=== PATIENT | male | born 1970 | race African-American/Black ===

== ENCOUNTER 2017-05-24 20:51 | Emergency (ER) | payer SELFPAY ==
[2017-05-24 20:53] VITALS: BP 158/81; PULSE 72; RESP 16; TEMP 98.2; O2SAT 100
--- NOTE | 2017-05-24 21:09 | PD ---
HPI Chief Complaint: Bite or Sting Time Seen by Provider: 21:09 Travel History International Travel<30 days: No Contact w/Intl Traveler<30days: No Traveled to known affect area: No History of Present Illness HPI 46-year-old male who is right handed, with history of diabetes, presents to emergency department for evaluation of a stingray sting to his right hand. Patient states that he was fishing when he caught the stingray. He rates trying to remove it from the hook when it struck his hand, piercing it. Patient reports significant pain where he was stung. He reports no limitations range of motion or alterations in sensation however he does report significant pain with movement of his fingers. Patient is uncertain of his tetanus status. He has no other symptoms to report. FORMERLY [facility] Past Medical History Diabetes: Yes Social History Alcohol Use: No Tobacco Use: No Substance Use: No Allergies-Medications (Allergen,Severity, Reaction): Coded Allergies: No Known Allergies (Unverified , 05/24/17) Reported Meds & Prescriptions Reported Meds & Active Scripts Active Reported Lisinopril 10 Mg Tab 10 Mg PO DAILY Metformin (Metformin HCl) 500 Mg Tab 500 Mg PO BIDPC With meals Review of Systems Except as stated in HPI: all other systems reviewed are Neg Physical Exam Narrative GENERAL: Well-nourished male patient, in no acute distress. SKIN: Focused skin assessment warm/dry. There is a 1 m puncture wound, well approximated on the dorsal aspect of the right hand between the first and second digit. Moderate edema surrounding this. HEAD: Atraumatic. Normocephalic. EYES: Pupils equal and round. No scleral icterus. No injection or drainage. ENT: No nasal bleeding or discharge. Mucous membranes pink and moist. NECK: Trachea midline. No JVD. CARDIOVASCULAR: Regular rate and rhythm. No murmur appreciated. RESPIRATORY: No accessory muscle use. Clear to auscultation. Breath sounds equal bilaterally. MUSCULOSKELETAL: No obvious deformities. No clubbing. No cyanosis. Patient has full flexion and extension of all digits and wrist to the affected extremity. NEUROLOGICAL: Awake and alert. No obvious cranial nerve deficits. Motor grossly within normal limits. Normal speech. PSYCHIATRIC: Appropriate mood and affect; insight and judgment normal. Data Data Last Documented VS Vital Signs Date Time Temp Pulse Resp B/P Pulse Ox O2 Delivery O2 Flow Rate FiO2 05/24/17 20:53 98.2 72 16 158/81 100 Orders Hand, Limited (2vws) (05/24/17 ) Tetanus/Diphtheria Tox Adult (Tetanus/Di (05/24/17 21:15) Doxycycline (Vibramycin) (05/24/17 21:15) MDM Medical Decision Making Medical Screen Exam Complete: Yes Emergency Medical Condition: Yes Medical Record Reviewed: Yes Differential Diagnosis Puncture wound versus local reaction versus foreign body versus tendon injury Narrative Course 46-year-old male presents to the emergency department following a stingray sting to his right hand. Patient has a puncture wound and localized swelling. Exam is otherwise negative. Patient's hand is immediately immersed in hot water. This alleviates his pain. Wound is irrigated. X-ray of the right hand is without any radiopaque foreign body identified. The osseous structures are intact. With concern of infection and higher risk due to the patient being diabetic, Patient will be tried on doxycycline empirically. He is encouraged to follow-up with a primary care provider. He agrees to return immediately with any acute worsening of symptoms. Diagnosis Primary Impression: Marine animal sting Qualified Code: T63.691A - Marine animal sting, accidental or unintentional, initial encounter Additional Impression: Puncture wound Referrals: Primary Care Physician Patient Instructions: General Instructions, Marine Animal Bite or Sting (ED) Additional Instructions: Elevate to reduce pain and swelling Continue soaking in warm to hot water to alleviate pain Follow-up with a primary care provider Start antibiotic tomorrow morning. Take it until it is all gone Ibuprofen as directed on the package as needed for pain Return immediately with any acute worsening of symptoms Med/Other Pt SpecificInfo: Prescription(s) given Scripts Hydrocodone-Acetaminophen (Lortab)5-325 Mg Tab1 Tab PO Q6H PRN (PAIN GREATER THAN 5) #6 TAB Ref 0 Prov:Paulina Peña 05/24/17 Doxycycline Hyclate 100 Mg Cpc038 Mg PO BID #20 CAP Ref 0 Prov:Paulina Peña 05/24/17 Disposition: 01 DISCHARGE HOME Condition: Stable Paulina Peña May 24, 2017 21:09
[2017-05-24] MEDS ORDERED: LISI10TA3 PO (21:12)
[2017-05-24] MEDS ORDERED: METF500T PO (21:12)
[2017-05-24] MEDS ORDERED: DOXYCYCLINE HYCLATE 100 MG CAP PO ONE (21:15)
[2017-05-24] MEDS ORDERED: TETANUS/DIPHTHERIA TOXOID ADULT 0.5 ML VIAL IM ONE (21:15)
--- NOTE | 2017-05-24 22:03 | RADRPT ---
EXAM DATE/TIME: 05/24/2017 21:03 [place] COMPARISON: No previous studies available for comparison. INDICATIONS : Foreign body, stung by stingray. MEDICAL HISTORY : None. SURGICAL HISTORY : None. ENCOUNTER: Initial ACUITY: 1 day PAIN SCORE: 10/10 LOCATION: Right middle hand. FINDINGS: Two view examination of the right hand demonstrates no soft tissue swelling, dislocation, or fracture . The joint spaces are maintained. Bony mineralization is normal. No radiopaque foreign bodies. CONCLUSION: Radiopaque foreign body seen. The osseous structures are grossly intact. Javier Duran MD on May 24, 2017 at 22:00 Board Certified Radiologist. This report was verified electronically.
[2017-05-24] MEDS ORDERED: DOXY100C PO (22:16)
[2017-05-24] MEDS ORDERED: HYDR-3533 PO (22:16)
[2017-05-24] MEDS ORDERED: ACETAMINOPHEN/HYDROcodone 325 MG/5 MG TAB PO ONE (22:30)
== END 2017-05-24 22:30 | disposition home or self-care (01) ==
LOC: NEPD 20:51
DX: T63.691A Toxic effect of contact with other venomous marine animals, accidental (unintentional), initial encounter (principal); S61.431A Puncture wound without foreign body of right hand, initial encounter; T63.511A Toxic effect of contact with stingray, accidental (unintentional), initial encounter; Z23 Encounter for immunization
CPT/HCPCS: 73120; 90471; 90714